=== PATIENT | female | born 2000 | race Caucasian/White ===

== ENCOUNTER 2022-08-10 00:56 | Observation (INO) | payer BC, MEDICAID, OTHER ==
[2022-08-10] MEDS ORDERED: ACETAMINOPHEN 325 MG TAB PO ONE (01:45)
[2022-08-10] MEDS ORDERED: FAMOTIDINE 20 MG TAB PO ONE (01:45)
[2022-08-10] MEDS ORDERED: PREN-96 PO (02:56)
== END 2022-08-10 03:11 | disposition home or self-care (01) ==
LOC: LDRP 00:56
PROVIDERS: ADMIT Obstetrics & Gynecology Obstetrics; ATTEND Obstetrics & Gynecology Obstetrics
DX: O26.892 Other specified pregnancy related conditions, second trimester (principal); R10.13 Epigastric pain; R51.9 Headache, unspecified; H53.8 Other visual disturbances; O21.2 Late vomiting of pregnancy; Z3A.25 25 weeks gestation of pregnancy; Z87.891 Personal history of nicotine dependence
CPT/HCPCS: 59025; 81002; G0378

== ENCOUNTER 2022-10-30 20:19 | Observation (INO) | payer OTHER ==
[~2022-10-30 20:19] MED LIST: PREN-96 PO
== END 2022-10-31 01:36 | disposition home or self-care (01) ==
LOC: LDRP 20:19
PROVIDERS: ADMIT Obstetrics & Gynecology; ATTEND Obstetrics & Gynecology
DX: O26.893 Other specified pregnancy related conditions, third trimester (principal); Z20.822 Contact with and (suspected) exposure to COVID-19; R10.10 Upper abdominal pain, unspecified; R06.02 Shortness of breath; O26.853 Spotting complicating pregnancy, third trimester; O36.8130 Decreased fetal movements, third trimester, not applicable or unspecified; O99.891 Other specified diseases and conditions complicating pregnancy; M54.9 Dorsalgia, unspecified; Z3A.37 37 weeks gestation of pregnancy; Z87.891 Personal history of nicotine dependence
CPT/HCPCS: 36415; 59025; 76805; 76815; 76818; 81002; 84112; 87426; 94760; G0378; Q0114